=== PATIENT | female | born 1935 | race Caucasian/White ===

== ENCOUNTER 2018-03-15 04:03 | Emergency (ER) | payer OTHER, BC ==
--- NOTE | 2018-03-15 04:46 | EDPHY ---
H & P Stated Complaint: cough and shortness of breath for 3-4 days Time Seen by Provider: 03/15/18 04:20 HPI/ROS: CHIEF COMPLAINT: Cough, dyspnea with exertion HISTORY OF PRESENT ILLNESS: This is a complex 82-year-old female who is visiting for the holiday from [facility]. She last visited here in June of 2017, 8 months ago, and really had no new the difficulties that she has noted here, at this time. In particular, she has been here for close to a week. She has noted dyspnea with exertion and a sense of fatigue with exertion but this recovers quickly. Furthermore, she has had a moderate cough. At times her daughter's heard her wheeze. The cough has been dry. No one else is ill. No recent pain in the calf or swelling of the legs. She did have an episode as congestive heart failure some 10 years ago however does not believe she had an MRI at that time. She has not noted any recent calf pain or swelling heard peripheral edema. There has been no orthopnea. What prompted roxann's visit was that she awoke at around 2:00 a.m. With a cough and seemed to be short of breath and could get back to sleep. P: With exertion she gets short of breath such as a flight of stairs and was out of breath and could not speak. Q: Sense of difficulty with breath with exertion R: There is no discomfort. No radiation S: Moderate T: With exertion, recovers shortly Though she smoked for approximately 40 years, she has never been diagnosed to have COPD or chronic bronchitis or emphysema. She is scheduled for a PET scan back home in [place], [place] for evaluation of axillary and inguinal adenopathy She believes she had an echocardiogram as an outpatient but this would be in 1 of the medical offices back [facility], not at the hospital. REVIEW OF SYSTEMS: Constitutional: No fever, no chills. Eyes: No discharge ENT: No sore throat. Cardiovascular: No chest pain, no palpitations. Respiratory: See above Gastrointestinal: No Nausea, vomiting, abdominla pain or diarrhea Genitourinary: No hematuria or frequency. Musculoskeletal: No back pain. Skin: No rashes. Neurological: No headache. A 10 system review of systems was performed and is negative except for the noted findings in the HPI. Source: Patient, Family Exam Limitations: No limitations - Medical/Surgical History Hx Asthma: No Hx Chronic Respiratory Disease: No Hx Diabetes: No Hx Cardiac Disease: No Hx Renal Disease: No Hx Cirrhosis: No Hx Alcoholism: No Hx HIV/AIDS: No Hx Splenectomy or Spleen Trauma: No Other PMH: Med hx-CHF,insomnia,anxiety,IBS?,neuropathy,HTN,Lung CA ,non-hodgkin' s lymphoma. SUrg-Lung - quit smoking 20 yrs ago. - Family History Significant Family History: No pertinent family hx - Social History Smoking Status: Never smoked Alcohol Use: None Drug Use: None - Physical Exam Exam: General Appearance: Alert, no distress, looks pale. She states that is because she does not have a makeup on. Afebrile. Normal phonation. No respiratory distress, 6 in full sentences. Eyes: Pupils equal and round no pallor or injection. No icterus ENT, Mouth: Mucous membranes moist Pharynx without erythema or exudate. TM Clear. Neck: No adenopathy. Supple. No JVD. Trachea in midline. Respiratory: There are no retractions, lungs are clear to auscultation, though BS diminished.. Chest wall: Nontender to palpation. No crepitus. Cardiovascular: Regular rate and rhythm, faint grade 1/6 murmur heard best in the pulmonic area, pansystolic in time Abdomen: Soft and nontender, no masses, bowel sounds normal. Femoral pulses equal. Neurological: Ox3. No motor weakness. Sensation intact. Gait nl. Skin: Warm and dry, no rashes. Musculoskeletal: No joint swelling. Extremities: No edema. Homans sign negative. No cords. Psychiatric: Normal affect. Patient is oriented X 3. There is no agitation Constitutional: Initial Vital Signs Temperature (C) 36.4 C 03/15/18 04:08 Heart Rate 82 03/15/18 04:08 Respiratory Rate 16 03/15/18 04:08 Blood Pressure 156/87 H 03/15/18 04:08 O2 Sat (%) 75 L 03/15/18 04:08 O2 Delivery Mode Nasal Cannula O2 (L/minute) 3 Allergies/Adverse Reactions: No Known Allergies Allergy (Verified 03/15/18 04:08) Home Medications: Medication Instructions Recorded Ambien PRN 03/18/16 Aspirin 81mg (*) 03/18/16 Calcium 1,000 + D3 Caplet 03/18/16 Carvedilol 03/18/16 Centrum Complete Multivit Tab 03/18/16 Dicyclomine [Bentyl 20 MG (*)] PRN 03/18/16 Fosamax 70 MG (*) 03/18/16 Gabapentin 03/18/16 Imodium A-D PRN 03/18/16 Lisinopril 03/18/16 Xanax 0.25 MG (*) PRN 03/18/16 Myrbetriq 03/15/18 Medical Decision Making - Diagnostics EKG Interpretation: EKG: Interpreted by me contemporaneously. 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 COPD with possible right basilar pneumonia. 2. Findings suggest prior left hemithorax lung cancer surgery. We would be happy to review any old outside imaging studies if and when they become available to assess for interval change in the appearance of the distorted left hilum. Chest x-ray: Two view chest. Interpreted by [me, contemporaneously]. Films [viewed] by me on the PACS system. Normal mediastinum, the lines or blurred due to cephalization of flow. No pneumothorax. No pneumonia. Left pleural effusion. Mild CHF. ED Course/Re-evaluation: On arrival she had an O2 sat of 75% which responded well to oxygen supplementation. Of note, she was walking in from the lobby thus there was some form of an exertional O2 sat reading. With 2 L she was in the 90s. Later on in the course of evaluation she was placed on room air and desatted into the 85-87 range. With exertion at that point her O2 sat became again 78. Laboratory studies include the following: Chest x-ray. Two-view study. Left pleural effusion. Chronic changes make it difficult to see any congestive heart failure per se, some cephalization.. 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 Her blood pressure is low, 108 systolic; thus there is no room for nitroglycerin topical. We called [facility] however, they have no telemetry beds. Family requested [facility] I discussed case Dr. Gaspar, hospitalist on-call at [facility] who accepts the patient and transferred for telemetry admission. [facility] will be arranged for ALS transfer. Differential Diagnosis: Differential diagnosis includes but is not limited to the following: ACS, myocardial infarction, pneumothorax, pleurisy, pulmonary embolus, CHF, Pneumonia, bronchospasm, Asthma, anxiety, muscle strain. - Data Points Laboratory Results: 03/15/18 03/15/18 03/15/18 04:50 04:34 04:32 POC Hgb 13.6 gm/dL gm/dL (12.6-16.3) POC Hct 40 % % (38-47) POC Sodium 143 mEq/L mEq/L (135-145) POC Potassium 4.2 mEq/L mEq/L (3.3-5.0) POC Chloride 101 mEq/L mEq/L (97-110) POC BUN 18 mg/dL mg/dL (7-23) POC Creatinine 0.7 mg/dL mg/dL (0.6-1.0) POC Glucose 108 mg/dL H mg/dL (70-100) POC Lactic Acid Charbel 0.7 mmol/L mmol/L (0.7-2.1) Total Bilirubin Conjugated Bilirubin Unconjugated Bilirubin AST ALT Alkaline Phosphatase POC Troponin I 0.01 ng/mL ng/mL (0.00-0.08) NT-Pro-B Natriuret Pep Total Protein Albumin 03/15/18 04:15 POC Hgb POC Hct POC Sodium POC Potassium POC Chloride POC BUN POC Creatinine POC Glucose POC Lactic Acid Charbel Total Bilirubin 0.5 mg/dL mg/dL (0.1-1.4) Conjugated Bilirubin 0.1 mg/dL mg/dL (0.0-0.5) Unconjugated Bilirubin 0.4 mg/dL mg/dL (0.0-1.1) AST 27 IU/L IU/L (14-46) ALT 21 IU/L IU/L (9-52) Alkaline Phosphatase 51 IU/L IU/L (38-126) POC Troponin I NT-Pro-B Natriuret Pep 882 pg/mL H pg/mL (0-450) Total Protein 6.3 g/dL g/dL (6.3-8.2) Albumin 3.6 g/dL g/dL (3.5-5.0) Medications Given: Discontinued Medications Furosemide (Lasix Injection) 20 mg IVP EDNOW ONE Stop: 03/15/18 06:02 Last Admin: 03/15/18 06:25 Dose: 20 mg Point of Care Test Results: CBC CBC Collection Date 03/15/18 CBC Collection Time 04:15 WBC 7.6 RBC 4.26 HGB 13.1 HCT 40.2 PLT 179 Neut # 5.9 Neut 78.6 LYMPH # 0.9 LYMPH 11.3 Other WBC # 0.8 Other WBC 10.1 MCV 94.4 Chemistry 03/15/18 03/15/18 04:50 04:32 POC Sodium 143 mEq/L mEq/L (135-145) POC Potassium 4.2 mEq/L mEq/L (3.3-5.0) POC Chloride 101 mEq/L mEq/L (97-110) POC BUN 18 mg/dL mg/dL (7-23) POC Creatinine 0.7 mg/dL mg/dL (0.6-1.0) POC Glucose 108 mg/dL H mg/dL (70-100) POC Troponin I 0.01 ng/mL ng/mL (0.00-0.08) Blood Gas/Lactic Acid-Venous 03/15/18 04:34 POC Lactic Acid Charbel 0.7 mmol/L mmol/L (0.7-2.1) ISTAT H&H 03/15/18 04:50 POC Hgb 13.6 gm/dL gm/dL (12.6-16.3) POC Hct 40 % % (38-47) Influenza PCR Flu Nasal Swab Collection Date 03/15/18 Flu Nasal Swab Collection Time 04:40 Influenza A Result Not Detected Influenza B Result Not Detected Departure - Departure Disposition: Acute Care Hospital Not [facility] Clinical Impression: Hypoxia Acute exacerbation of congestive heart failure Qualifiers: Heart failure type: unspecified Qualified Code(s): I50.9 - Heart failure, unspecified Condition: Fair Referrals: Patient,NotPresent [Primary Care Provider] - As per Instructions
[2018-03-15] MEDS ORDERED: FUROSEMIDE 20 MG/2 ML VIAL IVP ONE (06:01)
[2018-03-15 06:48] VITALS: BP 123/74
== END 2018-03-15 07:17 | disposition short-term general hospital (02) ==
LOC: CED 04:03
DX: R09.02 Hypoxemia (principal); I50.9 Heart failure, unspecified
CPT/HCPCS: 71046; 96374; 99285; J1940; 80076-PO; 82435-PO; 82565-PO; 82947-PO; 83605-PO; 84132-PO; 84295-PO; 84484-PO; 84520-PO; 85014-PO